=== PATIENT | female | born 1960 | race Caucasian/White ===

== ENCOUNTER 2019-04-02 19:16 | Emergency (ER) | payer OTHER ==
[~2019-04-02] VITALS: Wt 61.5 kg
[~2019-04-02 19:16] MED LIST: AMLODIPINE; BENA20TA65; FIORICET PO
[2019-04-02 19:37] VITALS: BP 149/67; PULSE 82; RESP 22
--- NOTE | 2019-04-02 21:02 | ERD ---
ER Documentation Chief Complaint Chief Complaint posterior BE since AM; no relief w tylenol last dose 2h ago. nausea, dizzy. HPI 58-year-old female, with history of hypertension, diabetes and hypokalemia, presents the emergency department, complaining of 1 day with headache. The pain is dull, 4/10, associated with mild dizziness and nausea. She denies distal weakness, numbness or tingling. No blurred vision, the patient has been taking Tylenol with mild improvement of the symptoms. ROS All systems reviewed and are negative except as per history of present illness. Medications Home Meds Active Scripts Gvavrrrzuywpc-Wtrawhvgxr-Bcoanjml-Codeine* (Fioricet w/Codeine*) 32 [id number] Cap, 1 CAP PO TID PRN for PAIN LEVEL 1-5, #12 CAP Prov:JOSE LUIS CAZARES MD 04/02/19 Acetamin/Butalbital/Caffeine* (Fioricet*) 1 Tab Tab, 1 TAB PO Q4H PRN for PAIN LEVEL 1-5, #20 TAB Prov:FEI FRANK PA-C 12/15/15 Reported Medications [Amlodipine] No Conflict Check 06/20/10 Benazepril Hcl* (Lotensin*) 20 Mg Tablet 06/20/10 Allergies Allergies: Coded Allergies: No Known Allergies (Verified Allergy, Mild, 04/07/14) PMhx/Soc History of Surgery: No Anesthesia Reaction: No Hx Neurological Disorder: Yes (STROKE) Hx Respiratory Disorders: No Hx Cardiac Disorders: Yes (HYPERLIPEDEMIA, HTN ) Hx Psychiatric Problems: Yes (DEPRESSION ) Hx Miscellaneous Medical Probl: No Hx Alcohol Use: No Hx Substance Use: No Hx Tobacco Use: Yes Smoking Status: Current every day smoker FmHx Family History: No diabetes, No coronary disease Physical Exam Vitals Vital Signs Date Temp Pulse Resp B/P (MAP) Pulse Ox O2 O2 Flow FiO2 Time Delivery Rate 04/02/19 97.9 82 22 149/67 97 19:37 (94) Physical Exam Const: No acute distress Head: Atraumatic Eyes: Normal Conjunctiva ENT: Normal External Ears, Nose and Mouth. Neck: Full range of motion. No meningismus. Resp: Clear to auscultation bilaterally Cardio: Regular rate and rhythm, no murmurs Abd: Soft, non tender, non distended. Normal bowel sounds Skin: No petechiae or rashes Back: No midline or flank tenderness Ext: No cyanosis, or edema Neur: Awake and alert Psych: Normal Mood and Affect Result Diagram: 04/02/192111 Results 24 hrs Laboratory Tests Test 04/02/19 21:12 Sodium Level 142 mmol/L Potassium Level 4.6 mmol/L Chloride Level 107 mmol/L Carbon Dioxide Level 28 mmol/L Anion Gap 7 Blood Urea Nitrogen 18 mg/dl Creatinine 0.83 mg/dl Est Glomerular Filtrat Rate mL/min > 60 mL/min Glucose Level 110 mg/dl Calcium Level 9.8 mg/dl Current Medications Medications Dose Sig/Tigre Start Time Status Last (Trade) Ordered Route PRN Stop Time Admin Dose Reason Admin Ketorolac 15 mg ONCE STAT 04/02/19 DC 04/02/19 Tromethamine IM 21:05 21:12 (Toradol) 04/02/19 21:07 Procedures/MDM Vital signs stable, Physical exam unremarkable, neurovascular exam intact. Differential diagnosis include but not limited to: Classical migraine, sinusitis, visual corrective problems, side effects of medications, dehydration, electrolyte imbalance, endocrine/autoimmune medical condition, stress, anxiety, tension headache. Low suspicion for meningitis, [employer] tumor, cerebrovascular event. Physical examination and clinical presentation consistent most likely with tension headache. During the ED course the patient remained stable, no new complaints. The patient received treatment with Toradol IM presenting overall improvement of the symptoms. Results and clinical impression discussed with patient who agrees with management. The patient is stable to be treated outpatient and will be dischar ged home, some side effects of prescribed medications (headache, rash, nausea, vomiting, diarrhea, drowsiness, habituation, bleeding, hypertension, interactions with other medications) were reviewed. Follow up with the primary care provider in the next 48h has been recommended. If symptoms persist, worsen or new symptoms develop, then patient should return to the ED immediately. Instructions explained and given directly by me to the patient with acknowledgment and demonstrated understanding. Disclaimer: Inadvertent spelling and grammatical errors are likely due to EHR/dictation software use and do not reflect on the overall quality of patient care. Also, please note that the electronic time recorded on this note does not necessarily reflect the actual time of the patient encounter. Departure Diagnosis: Primary Impression: Tension headache Condition: Stable Patient Instructions: Headache, Tension Additional Instructions: Muchas rocael por [facility] para [place] servicio. Esperamos que en [place] visita a la ellie de emergencia [place] problema medico haya sido solucionado y que se sienta mucho mejor. Para estar seguros que [place] mejoria sigue en proceso, le pedimos el favor de hacer ashia carmen de seguimiento medico con [place] doctor primario en los proximos 2-4 jones. Lleve con usted estos documentos y las medicinas recetadas. Si albert sintomas empeoran, NO SE ESPERE, por favor regrese a ellie de emergencia INMEDIATAMENTE. En kellie que usted no tenga un mdico de atencin primaria: Llame al mdico o clnica comunitaria de referencia que aparece abajo vani las horas de consultorio para hacer ashia carmen para que le vean. CLINICAS: [facility] [phone] [facility] [facility] [phone] [facility] [facility] [place] [phone] [address] [facility] [facility] [phone] [facility] [place] [id number] [phone] [facility]. [phone] MD April 02, 2019 21:02
[2019-04-02] MEDS ORDERED: KETOROLAC 15 MG INJ IM STA (21:05)
[2019-04-02] MEDS ORDERED: ABCC1C PO (22:13)
== END 2019-04-02 22:28 | disposition home or self-care (01) ==
LOC: FTE 19:16
DX: G44.209 Tension-type headache, unspecified, not intractable (principal); E11.9 Type 2 diabetes mellitus without complications; I10 Essential (primary) hypertension; F17.210 Nicotine dependence, cigarettes, uncomplicated
CPT/HCPCS: 80048; 96372; J1885; Z7502

== ENCOUNTER 2019-05-07 22:38 | Emergency (ER) | payer OTHER ==
[~2019-05-07] VITALS: Ht 147.3 cm; Wt 60.1 kg
[~2019-05-07 22:38] MED LIST changes: +ABCC1C PO
[2019-05-07 22:47] VITALS: Ht 147.3 cm; Wt 60.1 kg
[2019-05-08] MEDS ORDERED: METOCLOPRAMIDE 10 MG INJ IV STA (02:14)
[2019-05-08] MEDS ORDERED: DIPHENHYDRAMINE 50 MG INJ IV STA (02:14)
[2019-05-08] MEDS ORDERED: KETOROLAC 30 MG INJ IV STA (02:14)
--- NOTE | 2019-05-08 02:42 | ERD ---
ER Documentation Chief Complaint Chief Complaint HTN, HAILE X'S 1 DAY HPI This is a 58-year-old female presents for evaluation of headache. She states that she has been having the headache on and off for the last month, she was seen in the ED, where she was evaluated for hypertension as well as what was presumed to be a migraine. She has had no worsening of her headache, it was not sudden onset she has not had a fever, she has had no confusion. She noted that her blood pressure was also elevated, and she is following up with her primary care doctor for this, she has no chest pain or shortness of breath. ROS All systems reviewed and are negative except as per history of present illness. Medications Home Meds Active Scripts Xqtkrmtbwtstk-Inyxwvlroh-Wtprbgbj-Codeine* (Fioricet w/Codeine*) [id number]-30MG Cap, 1 CAP PO TID PRN for PAIN LEVEL 1-5, #12 CAP Prov:JOSE LUIS CAZARES MD 04/02/19 Acetamin/Butalbital/Caffeine* (Fioricet*) 1 Tab Tab, 1 TAB PO Q4H PRN for PAIN LEVEL 1-5, #20 TAB Prov:FEI FRANK PA-C 12/15/15 Reported Medications [Amlodipine] No Conflict Check 06/20/10 Benazepril Hcl* (Lotensin*) 20 Mg Tablet 06/20/10 Allergies Allergies: Coded Allergies: No Known Allergies (Verified Allergy, Mild, 04/07/14) PMhx/Soc History of Surgery: No Anesthesia Reaction: No Hx Neurological Disorder: Yes (STROKE) Hx Respiratory Disorders: No Hx Cardiac Disorders: Yes (htn) Hx Psychiatric Problems: Yes (DEPRESSION ) Hx Miscellaneous Medical Probl: No Hx Alcohol Use: No Hx Substance Use: No Hx Tobacco Use: Yes Smoking Status: Current every day smoker Physical Exam Vitals Vital Signs Date Temp Pulse Resp B/P (MAP) Pulse Ox O2 O2 Flow FiO2 Time Delivery Rate 05/08/19 56 16 160/73 96 Room Air 01:46 (102) 05/08/19 57 16 194/74 97 Room Air 00:33 (114) 05/07/19 97.8 65 18 238/100 98 22:47 (146) Physical Exam Const: No acute distress Head: Atraumatic Eyes: Normal Conjunctiva ENT: Normal External Ears, Nose and Mouth. Neck: Full range of motion. No meningismus. Resp: Clear to auscultation bilaterally Cardio: Regular rate and rhythm, no murmurs Abd: Soft, non tender, non distended. Normal bowel sounds Skin: No petechiae or rashes Back: No midline or flank tenderness Ext: No cyanosis, or edema Neur: Awake and alert, cranial nerves II through XII intact, no cerebellar ataxia, Psych: Normal Mood and Affect Result Diagram: 05/08/194405/08/195 Results 24 hrs Laboratory Tests Test 05/08/19 00:45 White Blood Count 5.7 10^3/ul Red Blood Count 4.57 10^6/ul Hemoglobin 12.3 g/dl Hematocrit 36.7 % Mean Corpuscular Volume 80.3 fl Mean Corpuscular Hemoglobin 26.9 pg Mean Corpuscular Hemoglobin Concent 33.5 g/dl Red Cell Distribution Width 13.6 % Platelet Count 185 10^3/UL Mean Platelet Volume 11.5 fl Immature Granulocytes % 0.200 % Neutrophils % 40.5 % Lymphocytes % 45.5 % Monocytes % 8.4 % Eosinophils % 4.9 % Basophils % 0.5 % Nucleated Red Blood Cells % 0.0 /100WBC Immature Granulocytes # 0.010 10^3/ul Neutrophils # 2.3 10^3/ul Lymphocytes # 2.6 10^3/ul Monocytes # 0.5 10^3/ul Eosinophils # 0.3 10^3/ul Basophils # 0.0 10^3/ul Nucleated Red Blood Cells # 0.0 10^3/ul Sodium Level 143 mmol/L Potassium Level 3.7 mmol/L Chloride Level 105 mmol/L Carbon Dioxide Level 28 mmol/L Anion Gap 10 Blood Urea Nitrogen 13 mg/dl Creatinine 0.73 mg/dl Est Glomerular Filtrat Rate mL/min > 60 mL/min Glucose Level 109 mg/dl Calcium Level 9.6 mg/dl Total Bilirubin 0.3 mg/dl Direct Bilirubin 0.00 mg/dl Indirect Bilirubin 0.3 mg/dl Aspartate Amino Transf (AST/SGOT) 41 IU/L Alanine Aminotransferase (ALT/SGPT) 45 IU/L Alkaline Phosphatase 99 IU/L Troponin I < 0.012 ng/ml Total Protein 7.9 g/dl Albumin 4.4 g/dl Globulin 3.50 g/dl Albumin/Globulin Ratio 1.25 Current Medications Medications Dose Sig/Tigre Start Time Status Last (Trade) Ordered Route PRN Stop Time Admin Dose Reason Admin 10 mg ONCE STAT 05/08/19 DC Metoclopramid IV 02:14 05/08/19 e HCl 02:16 (Reglan) Ketorolac 15 mg ONCE STAT 05/08/19 DC Tromethamine IV 02:14 05/08/19 (Toradol) 02:16 25 mg ONCE STAT 05/08/19 DC Diphenhydrami IV 02:14 05/08/19 ne HCl 02:16 (Benadryl) Procedures/MDM Is a 58-year-old female presentation of headache and hypertension. On exam patient is well-appearing nontoxic with no neurologic deficits, she has no signs or symptoms of hypertensive emergency, and does not appear encephalopathic. She has had similar migraine symptoms in the past, I have very low suspicion for subarachnoid hemorrhage, CT brain was performed, given her age and the prolonged nature of her headache, this was negative. Her lab work-up was o verall unremarkable, given that she has continued to have prolonged migraines I recommended that she follow-up with the neurologist, I did give her a prescription for sumatriptan, in the interim at discharge she was in no distress. EKG: Rate/Rhythm: Normal Sinus Rhythm QRS, ST, T-waves: No changes consistent w/ acute ischemia Impression: No evidence of ischemia or arrhythmia Departure Diagnosis: Primary Impression: Hypertension Hypertension type: unspecified Qualified Codes: I10 - Essential (primary) hypertension Additional Impression: Migraine Migraine type: unspecified Status migrainosus presence: without status migrainosus Intractability: not intractable Qualified Codes: G43.909 - Migraine, unspecified, not intractable, without status migrainosus Condition: MONTRELL Trivedi MD May 08, 2019 02:42
[2019-05-08] MEDS ORDERED: SUMA50TA2 PO (02:44)
[2019-05-08 03:50] VITALS: BP 137/68; PULSE 72; RESP 16
== END 2019-05-08 03:58 | disposition home or self-care (01) ==
LOC: E/R 22:38
DX: I10 Essential (primary) hypertension (principal); G43.909 Migraine, unspecified, not intractable, without status migrainosus; R40.2142 Coma scale, eyes open, spontaneous, at arrival to emergency department; R40.2252 Coma scale, best verbal response, oriented, at arrival to emergency department; R40.2362 Coma scale, best motor response, obeys commands, at arrival to emergency department; F17.210 Nicotine dependence, cigarettes, uncomplicated; Z86.73 Personal history of transient ischemic attack (TIA), and cerebral infarction without residual deficits
CPT/HCPCS: 36415; 70450; 71045; 80053; 84484; 85025; 93005; 96374; 96375; J1200; J1885; J2765; Z7502